=== PATIENT | male | born 1980 | race Caucasian/White ===

== ENCOUNTER 2016-07-08 21:29 | Emergency (ER) | payer MEDICAID ==
[~2016-07-08] VITALS: Ht 180.3 cm; Wt 98.5 kg
[~2016-07-08 21:29] MED LIST: IBUP-1542 PO
[2016-07-08 21:32] VITALS: Ht 180.3 cm; Wt 98.5 kg
[2016-07-08] MEDS ORDERED: CEPH-443 PO (21:59)
--- NOTE | 2016-07-08 21:59 | ERD ---
ER Documentation Chief Complaint Date/Time DATE: 07/08/16 TIME: 21:56 Chief Complaint RIGHT POINTER FINGER PAIN X2 WEEKS. STATES MIGHT HAVE PC OF WOOD. HPI 35-year-old male presents here in emergency department for complaints of possible foreign body, redness swelling on the right index finger for 2 weeks. Patient was cutting a wood, visible would get inserted into the finger, he was able to get some part of it out 2 weeks ago, it started to become red and swollen, but is coming out from the area, patient was seen by another doctor, was given prescription for Keflex, took the medications as prescribed, patient continues to have redness and swelling, no feeling poking sensation on the finger, sharp pain, 4/and scale, is worse upon touching the area. Patient is worried that there is more foreign body inside the finger. Patient denies any fever or chills. ROS All systems reviewed and are negative except as per history of present illness. Medications Home Meds Active Scripts Ibuprofen* (Ibuprofen*) 600 Mg Tablet, 600 MG PO Q6 for 5 Days, TAB Prov:ELYSIA ARREOLA 04/02/15 Reported Medications Cephalexin* (Keflex*) Unknown Strength Capsule, PO QID for 5 Days, CAP 07/08/16 Allergies Allergies: Coded Allergies: No Known Allergy (Unverified , 07/08/16) PMhx/Soc Medical and Surgical Hx: pt denies Medical Hx, pt denies Surgical Hx Hx Alcohol Use: No Hx Substance Use: No Hx Tobacco Use: No Smoking Status: Never smoker FmHx Family History: No coronary disease, No diabetes, No other Physical Exam Vitals Vital Signs Date Time Temp Pulse Resp B/P Pulse Ox O2 Delivery O2 Flow Rate FiO2 07/08/16 21:32 98.5 94 18 167/92 99 Physical Exam GENERAL: The patient is well developed and appropriate for usual state of health, in no apparent distress. CHEST: Clear to auscultation bilaterally. There are no rales, wheezes or rhonchi. HEART: Regular rate and rhythm. No murmurs, clicks, rubs or gallops. No S3 or S4. ABDOMEN: Soft, nontender and nondistended. Good bowel sounds. No rebound or guarding. No gross peritonitis. No gross organomegaly or masses. No Hooker sign or McBurney point tenderness. BACK: No midline or flank tenderness. EXTREMITIES: Able to do full range of motion of the right index finger without any restriction, noted swelling of the proximal finger area of swelling, noted some tenderness on palpation. Equal pulses bilaterally. Full range of motion of other joints of the body. Grossly neurovascularly intact. NEURO: Alert and oriented. Cranial nerves 2-12 intact. Motor strength in all 4 extremities with 5/5 strength. Sensation grossly intact. Normal speech and gait. SKIN: There is no apparent rash or petechia. The skin is warm and dry. HEMATOLOGIC AND LYMPHATIC: There is no evidence of excessive bruising or lymphedema. No gross cervical, axillary, or inguinal lymphadenopathy. Results 24 hrs Current Medications Medications (Trade) Dose Ordered Sig/Micheal Route PRN Reason Start Time Stop Time Status Last Admin Dose Admin Cefazolin Sodium (Ancef) 1 gm ONCE ONCE IM 07/09/16 00:30 07/09/16 00:31 PROCEDURE: Right second finger. CLINICAL INDICATION: Pain. TECHNIQUE: Three views including PA, lateral and oblique views of the right second finger were obtained. COMPARISON: None. FINDINGS: There is no fracture, dislocation or bone destruction. The joint spaces are within normal limits. Bone mineralization is within normal limits. There is no radiopaque foreign body or abnormal calcification. There is soft tissue swelling. IMPRESSION: Soft tissue swelling without evidence of radiopaque foreign body. .Antwan So MD, MD Date Time Electronically viewed and signed by .Antwan So MD, MD on 07/08/2016 23:11 .T/ CC: MAINOR RUSSO NP PROCEDURE: Ultrasound examination of the right second finger. CLINICAL INDICATION: Injury and pain. TECHNIQUE: Multiple sonographic images of the right second finger were obtained. COMPARISON: None. FINDINGS: There is a linear echogenic structure within the soft tissues measuring 2.0 cm in length. IMPRESSION: Linear echogenic structure consistent with foreign body. .Antwan So MD, MD Date Time Electronically viewed and signed by .Antwan So MD, MD on 07/09/2016 00:02 .T/ CC: MAINOR RUSSO RN LABOR DELIVERY I discussed this case with my attending physician, Dr. España, he recommends having patient follow up with an orthopedic hand surgeon consultation outpatient in 1-2 days for possible removal, patient will be given IM Ancef here in emergency department, will be given prescription oral antibiotics for prevention of infection. Patient has had it for 2 weeks now, in the area would cause possible vascular damage, and is to see a specialist for further evaluation and possible removal of the foreign body. Procedures/MDM Medical Decision Making: Patient's pain is most likely consistent with a body is seen in the ultrasound, this needs to be removed by an orthopedic surgeon within 1-2 days. Patient was covered with antibiotics for prevention of infection, was given IM Ancef, old be given oral antibiotics to go home with. No symptoms of neurovascular There is no suspicion for neurovascular compromise. Patient has intact sensation and circulation of the affected extremity. There is low suspicion for septic arthritis. Patient does not have any fever. Radiology exams of the affected area does not show any fracture or dislocation. Disposition: Home. Patient is given prescription for ibuprofen for pain, [place] for severe pain, Keflex and Bactrim for prevention of infection. Patient was advised to elevate the affected area and apply ice on affected area. Patient was advised that if symptoms are worse, numbness, tingling, high fever, unable to move joint, worsening symptoms, to return to emergency department immediately. Otherwise, patient is advised to follow up with the orthopedic hand surgeon 1-2 days for possible removal of the foreign body. Departure Diagnosis: Primary Impression: Foreign body (FB) in soft tissue Condition: Stable Patient Instructions: Foreign Body, Soft Tissue [Not Removed] Additional Instructions: Patient is given prescription for ibuprofen for pain, [place] for severe pain, Keflex and Bactrim for prevention of infection. Patient was advised to elevate the affected area and apply ice on affected area. Patient was advised that if symptoms are worse, numbness, tingling, high fever, unable to move joint, worsening symptoms, to return to emergency department immediately. Otherwise, patient is advised to follow up with the orthopedic hand surgeon 1-2 days for possible removal of the foreign body. MAINOR RUSSO NP Jul 08, 2016 21:59
--- NOTE | 2016-07-08 23:12 | RADRPT ---
PROCEDURE: Right second finger. CLINICAL INDICATION: Pain. TECHNIQUE: Three views including PA, lateral and oblique views of the right second finger were ob tained. COMPARISON: None. FINDINGS: There is no fracture, dislocation or bone destruction. The joint spaces are within normal limits. Bone mineralization is within normal limits. There is no radiopaque foreign body or abnormal calcif ication. There is soft tissue swelling. IMPRESSION: Soft tissue swelling without evidence of radiopaque foreign body. .Antwan So MD, Date Time Electronically viewed and signed by .Antwan So MD, MD on 07/08/2016 23:11 .T/
--- NOTE | 2016-07-09 00:02 | RADRPT ---
PROCEDURE: Ultrasound examination of the right second finger. CLINICAL INDICATION: Injury and pain. TECHNIQUE: Multiple sonographic images of the right second finger were obtained. COMPARISON: None. FINDINGS: There is a linear echogenic structure within the soft tissues measuring 2.0 cm in length. IMPRESSION: Linear echogenic structure consistent with foreign body. .Antwan So MD, Date Time Electronically viewed and signed by .Antwan So MD, on 07/09/2016 00:02 .T/
[2016-07-09] MEDS ORDERED: IBUP-1542 PO (00:27)
[2016-07-09] MEDS ORDERED: CEPH-443 PO (00:27)
[2016-07-09] MEDS ORDERED: HYDR-906 PO (00:27)
[2016-07-09] MEDS ORDERED: BACTDS PO (00:27)
[2016-07-09] MEDS ORDERED: CEFAZOLIN 1 GM INJ IM ONE (00:30)
== END 2016-07-09 00:58 | disposition home or self-care (01) ==
LOC: FTE 21:29
DX: M79.5 Residual foreign body in soft tissue (principal)
CPT/HCPCS: 73140; 76536; 96372; J0690; Z7502